=== PATIENT | male | born 1955 | race Caucasian/White ===

== ENCOUNTER 2020-06-09 08:22 | Emergency (ER) | payer BC ==
[2020-06-09 09:14] LABS: BASO # 0.1 (0.02-0.10); EOS # 0.1 (0.04-0.40); EOS % 1.1 % (0.0-4.0); HEMOGLOBIN 16.6 g/dL (13.5-18.0); MEAN CELL VOLUME 85 fl (78-100); MEAN CORPUSCULAR HEMOGLOBIN 28 pg (27-31); MEAN CORPUSCULAR HGB CONC 33 g/dL (33-37); MEAN PLATELET VOLUME 10.2 fl (7.4-10.4); MONO # 1.5 (0.20-0.80); NEU # 8.2 (1.40-6.50); PLATELET COUNT 306 K/mm3 (130-400); RED BLOOD COUNT 5.86 M/mm3 (4.20-5.60); RED CELL DISTRIBUTION WIDTH 14.9 % (11.5-14.5); WHITE BLOOD COUNT 12.9 K/mm3 (4.8-10.8)
[2020-06-09 09:15] LABS: POTASSIUM 4.3 mmol/L (3.5-5.1)
[2020-06-09 09:17] LABS: CALCIUM 8.9 mg/dL (8.3-10.5)
[2020-06-09 09:18] LABS: TOTAL PROTEIN 7.3 g/dL (6.2-8.1)
[2020-06-09 09:20] LABS: TOTAL BILIRUBIN 0.5 mg/dL (0.2-1.2)
[2020-06-09 09:31] LABS: TROPONIN-I 0.09 ng/mL (<0.030)
[2020-06-09 09:58] LABS: URINE APPEARANCE CLEAR; URINE BILIRUBIN NEGATIVE (NEGATIVE); URINE BLOOD NEGATIVE (NEGATIVE); URINE COLOR YELLOW; URINE GLUCOSE NEGATIVE (NEGATIVE); URINE KETONE NEGATIVE (NEGATIVE); URINE LEUKOCYTE ESTERASE NEGATIVE (NEGATIVE); URINE MUCUS PRESENT (NOT PRESENT); URINE NITRATE NEGATIVE (NEGATIVE); URINE PROTEIN(semi-quant) TRACE mg/dL (NEGATIVE); URINE UROBILINOGEN NORMAL (NORMAL)
[2020-06-09] MEDS ORDERED: LOPRESSOR 225 MG/TAB PO (11:41)
[2020-06-09 12:20] VITALS: BP 125/88
== END 2020-06-09 12:24 | disposition home or self-care (01) ==
LOC: ED 08:22
PROVIDERS: Physician Assistant
DX: I47.1 Supraventricular tachycardia (principal)
CPT/HCPCS: J0153

== ENCOUNTER → 2020-07-02 | Outpatient (CLI) | payer BC ==
[2020-06-09 12:20] VITALS: BP 125/88
[~2020-07-02] MED LIST: LOPRESSOR 225 MG/TAB PO
== END ==
LOC: CARDREHAB 09:49
DX: I47.1 Supraventricular tachycardia (principal)
CPT/HCPCS: A9500

== ENCOUNTER → 2020-07-27 | Outpatient (CLI) | payer BC | LOC: VAS 07:53 → RAD 08:00 | DX: I47.1 Supraventricular tachycardia (principal) ==